=== PATIENT | female | born 1985 | race Native Hawaiian/Other Pacific Islander ===

== ENCOUNTER 2017-11-07 03:13 | Outpatient (CLI) | payer OTHER | END 2017-11-07 03:25 | disposition short-term general hospital (02) | LOC: AMB 03:13 | DX: R06.02 Shortness of breath (principal); R07.89 Other chest pain; F10.129 Alcohol abuse with intoxication, unspecified | CPT/HCPCS: A0425; A0427 ==

== ENCOUNTER 2017-11-07 03:41 | Emergency (ER) | payer OTHER ==
[~2017-11-07] VITALS: Ht 165.1 cm; Wt 45.8 kg
[2017-11-07 03:59] LABS: PLATELET COUNT 202 K/uL (152-353)
[2017-11-07 04:15] LABS: POTASSIUM 3.4 mmol/L (3.6-5.2); SODIUM 135 mmol/L (136-145)
[2017-11-07 06:42] VITALS: BP 110/65; TEMP 98.2
== END 2017-11-07 06:43 | disposition home or self-care (01) ==
LOC: ED 03:41
DX: F10.129 Alcohol abuse with intoxication, unspecified (principal); F41.9 Anxiety disorder, unspecified
CPT/HCPCS: 80053; 80307; 80320; 81000; 82550; 82553; 84484; 85027; 93005; 99283